=== PATIENT | male | born 1990 | race Caucasian/White ===

== ENCOUNTER 2017-03-14 09:12 | Emergency (ER) | payer MEDICAID ==
[~2017-03-14] VITALS: Ht 177.8 cm; Wt 76.4 kg
[2017-03-14 11:04] VITALS: BP 115/74
== END 2017-03-14 11:04 | disposition home or self-care (01) ==
LOC: ED 09:12
DX: J98.01 Acute bronchospasm (principal); R50.9 Fever, unspecified; M79.1 Myalgia; F17.210 Nicotine dependence, cigarettes, uncomplicated; F14.10 Cocaine abuse, uncomplicated; Z71.6 Tobacco abuse counseling
CPT/HCPCS: 87804; 99406; J2930; J7613; J7644

== ENCOUNTER 2018-02-19 00:04 | Emergency (ER) | payer BC ==
[~2018-02-19] VITALS: Ht 177.8 cm; Wt 78.9 kg
[2018-02-19 00:14] VITALS: Ht 177.8 cm; Wt 78.9 kg
[2018-02-19 01:14] VITALS: BP 135/71
== END 2018-02-19 01:15 | disposition home or self-care (01) ==
LOC: ED 00:04
DX: J45.901 Unspecified asthma with (acute) exacerbation (principal)
CPT/HCPCS: J7512; J7613; J7644